=== PATIENT | female | born 1945 | race Caucasian/White ===

== ENCOUNTER 2017-03-16 06:28 | Emergency (ER) | payer MEDICARE, MEDICAID ==
[~2017-03-16 06:28] MED LIST: A VITE; ACTOS15 M1 PO; ACTOS15 MG PO; ACTOS30 MG PO; ADULT ASPIRIN81 MG PO; ALAVERT10 MG PO; ALPRAZOLAM1 M3 PO; ALPRAZOLAM1 MG; ASPIR 8181 M1 PO; ASPIRIN325 M3 PO; ATARAX25 MG PO; B COMPLETE1 EACH PO; BENICAR20 MG PO; BENICAR40 MG; BISACODYL10 MG/SU; CERTAVITE-ANTI1 EACH PO; CLARITIN10 M5 PO; CLARITIN10 M6 PO; CLARITIN10 MG PO; COLACE100 MG PO; COUMADIN10 MG; COUMADIN4 MG; COUMADIN5 MG PO; COUMADIN7.5 MG; COZAAR50 M1 PO; CYMBALTA30 MG PO; DIFLUCAN100 MG PO; ENDOCET 5/325 T1 TAB PO; FLONASE ALLERG9.9 ML; FLONASE16 G2; FLONASE16 G3; FUROSEMIDE80 MG PO; HUMULIN N100 U/ML; K-DUR20 MEQ PO; KEFLEX500 M4 PO; KEFLEX500 MG PO; LASIX20 M1 PO; LASIX20 MG; LASIX40 MG; LEVAQUIN250 MG; LEVOTHYROXINE25 MC3 PO; LIPITOR10 MG; LIPITOR20 M1 PO; LIPITOR20 MG PO; LOSARTAN POTASS50 MG PO; LOVENOX150 MG/ML; MILK OF MA400 MG/5 M; MILK OF MAGNESIA PO; MIRALAX12 EA; MOBIC15 M2 PO; NORCO 5/325 TAB1 TAB; NOVOLIN N100 U/ML; NOVOLOG100 U/M; NYSTOP15 GM; OCUVITE SOFTGE1 EACH PO; ORAZINC220 MG PO; OXYCODONE HCL10 M2 PO; OXYCODONE HCL5 M1 PO; OXYCONTIN10 M2 PO; OXYCONTIN10 MG; PATADAY2.5 M1 EACH EYE; PEN-VEE K500 MG PO; PERCOCET 10 MG/1 TAB PO; PREMARIN30 GM VG; PRILOSEC OTC20 M1 PO; PRILOSEC20 M1 PO; ROXICODONE5 M2 PO; ROXICODONE5 MG/TAB PO; SENNA S TABLET1 TAB; SENNA-DOCUSATE1 EACH PO; SYMBICORT 160-1 PUFF INH; SYSTANE ULTRA EACH EYE; SYSTANE ULTRA OP; THERA-M1 EAC1 PO; THERA-M1 TAB PO; TYLENOL325 M2 PO; TYLENOL325 MG; ULTRAM50 M1 PO; ULTRAM50 MG; ULTRAM50 MG PO; VITAMIN B-12500 MC3 PO; VITAMIN B-6100 M1 PO; VITAMIN C PO; VITAMIN C500 M3 PO; VITAMIN D 22000 UNIT PO; VITAMIN D32000 UNI3 PO; VITAMIN D35000 UNI3 PO; VITAMIN D400 UNIT PO; XANAX1 M1 PO; XANAX1 MG PO; ZANAFLEX4 M3 PO; ZANAFLEX4 MG PO; [UNRECOGNIZED DRUG - OTHER] PO
[2017-03-16] MEDS ORDERED: BROVANA15 MCG/22 INH (06:52)
[2017-03-16] MEDS ORDERED: PULMICORT0.5 MG/22 INH (06:52)
[2017-03-16] MEDS ORDERED: SYNTHROID50 MC1 PO (06:52)
[2017-03-16] MEDS ORDERED: AUGMENTIN 875-1 EAC2 PO (07:32)
== END 2017-03-16 07:41 ==
LOC: EDMED 06:28
DX: J32.9 Chronic sinusitis, unspecified (principal); E11.9 Type 2 diabetes mellitus without complications; I10 Essential (primary) hypertension; E78.00 Pure hypercholesterolemia, unspecified; M19.90 Unspecified osteoarthritis, unspecified site; F32.9 Major depressive disorder, single episode, unspecified; Z90.710 Acquired absence of both cervix and uterus

== ENCOUNTER 2017-03-27 21:35 | Emergency (ER) | payer MEDICARE, MEDICAID ==
[~2017-03-27 21:35] MED LIST changes: +AUGMENTIN 875-1 EAC2 PO; +BROVANA15 MCG/22 INH; +PULMICORT0.5 MG/22 INH; +SYNTHROID50 MC1 PO
[2017-03-27] MEDS ORDERED: KEFLEX250 M2 (22:12)
== END 2017-03-27 23:35 ==
LOC: EDMED 21:35
PROC: 2Y41X5Z Packing of Nasal Region using Packing Material (ICD-10-PCS; principal; 2017-03-27)
DX: R04.0 Epistaxis (principal); E11.9 Type 2 diabetes mellitus without complications; I10 Essential (primary) hypertension; J44.9 Chronic obstructive pulmonary disease, unspecified; J45.909 Unspecified asthma, uncomplicated; Z79.82 Long term (current) use of aspirin; Z79.899 Other long term (current) drug therapy